=== PATIENT | female | born 1960 | race Caucasian/White ===

== ENCOUNTER 2023-06-23 04:34 | Day surgery (SDC) | payer OTHER ==
[2023-06-19 16:42] VITALS: BMI 24.9
[2023-06-23] MEDS ORDERED: BUPIVACAINE HCL/PF 0.75% 10 ML VIAL ONE (07:20)
[2023-06-23] MEDS ORDERED: LIDOCAINE HCL/PF 1% SDV 5ML VIAL ONE (07:20)
[2023-06-23] MEDS ORDERED: LIDOCAINE HCL 1% PRESERVATIVE FREE - 30ML VIAL IJ ONE (10:49)
[2023-06-23] MEDS ORDERED: BUPIVACAINE HCL/PF 0.75% 10 ML VIAL NR ONE (10:54)
[2023-06-23 11:47] VITALS: BP 114/74; PULSE 64; RESP 18; TEMP 97.8
[2023-06-23] MEDS ORDERED: ACETAMINOPHEN 500 MG TABLET (FP) PO PRN (14:00)
== END 2023-06-23 11:25 | disposition home or self-care (01) ==
LOC: JASU-SURG 04:34
PROVIDERS: ATTEND Pain Medicine Pain Medicine
PROC: 3E0T33Z Introduction of Anti-inflammatory into Peripheral Nerves and Plexi, Percutaneous Approach (ICD-10-PCS; 2023-06-23)
PROC: 3E0T3BZ Introduction of Anesthetic Agent into Peripheral Nerves and Plexi, Percutaneous Approach (ICD-10-PCS; principal; 2023-06-23 11:30)
DX: M47.816 Spondylosis without myelopathy or radiculopathy, lumbar region (principal)
CPT/HCPCS: 76000-TC-FY

== ENCOUNTER 2025-01-16 20:18 | Emergency (ER) | payer OTHER ==
[2025-01-16 20:25] VITALS: TEMP 98.9; BMI 26.4
[2025-01-16 20:55] LABS: HEMATOCRIT 37.6 % (34.1-44.9); MCHC 31.9 g/dl (32.2-35.5); MEAN CELL VOLUME 88.1 fl (79.4-94.8); MEAN PLT VOLUME 10.4 fl (9.4-12.3); PLATELET COUNT 244 x10^3/uL (182-369); RDW 13.6 % (12.4-16.4)
[2025-01-16 21:23] LABS: POTASSIUM 4.9 mmol/L (3.5-5.1)
[2025-01-16] MEDS ORDERED: ACETAMINOPHEN INJECTION 100 ML ONE (21:23)
[2025-01-16 21:25] LABS: CALCIUM 9.9 mg/dL (8.5-10.1)
[2025-01-16 21:26] LABS: ALBUMIN 3.9 g/dl (3.4-5.0); BLOOD UREA NITROGEN 13.6 mg/dL (7-18)
[2025-01-16] MEDS: ACETAMINOPHEN 1000 MG/100 ML BAG IVPB ONE (21:27)
[2025-01-16 21:29] LABS: CREATININE 0.9 mg/dL (0.55-1.3)
[2025-01-16] MEDS ORDERED: BENZONATATE 200 MG CAPSULE PO ONE (21:29)
[2025-01-16 21:30] LABS: BILIRUBIN,TOTAL 0.3 mg/dL (0.2-1); TOT PROT 7.1 g/dl (6.4-8.2)
[2025-01-16] MEDS: BENZONATATE 200 MG CAPSULE PO ONE (21:30)
[2025-01-16 22:07] VITALS: BP 108/59; PULSE 72; RESP 19
== END 2025-01-16 22:08 | disposition home or self-care (01) ==
LOC: MERGE 20:18 → JER 20:18
PROC: 3E033NZ Introduction of Analgesics, Hypnotics, Sedatives into Peripheral Vein, Percutaneous Approach (ICD-10-PCS; principal; 2025-01-16)
DX: J40 Bronchitis, not specified as acute or chronic (principal); R09.81 Nasal congestion; R05.9 Cough, unspecified; R06.02 Shortness of breath
CPT/HCPCS: 0241U-QW; 36415; 71046-TC-FY; 80053; 85027; 99284-25